=== PATIENT | female | born 1975 | race Caucasian/White ===

== ENCOUNTER 2021-01-22 09:45 | Emergency (ER) | payer OTHER ==
[~2021-01-22] VITALS: Ht 162.6 cm; Wt 68.2 kg
[~2021-01-22 09:45] MED LIST: CEPH500C2 PO; IBUP-2070 PO; VICOT PO; [UNRECOGNIZED DRUG - CODE] PO
[2021-01-22 09:47] VITALS: BP 125/74
[2021-01-22] MEDS ORDERED: FAMOTIDINE 20 MG TABLET PO ONE (11:30)
[2021-01-22] MEDS ORDERED: DiphenhydrAMINE HCL 25 MG CAPSULE PO ONE (11:45)
[2021-01-22] MEDS ORDERED: PERMETHRIN 5% 60 GM CREAM TP ONE (11:45)
== END 2021-01-22 13:41 | disposition home or self-care (01) ==
LOC: EMS 09:45
DX: B86 Scabies (principal)
CPT/HCPCS: 99282; 99283